=== PATIENT | male | born 1945 | race Caucasian/White ===

== ENCOUNTER 2020-01-02 06:30 | Outpatient (CLI) | payer MEDICARE, OTHER ==
[2020-01-03 16:29] LABS: SARS-CoV-2 MS2 Positive; SARS-CoV-2 N Gene Negative; SARS-CoV-2 S Gene Negative; SARS-CoV-2 orf1ab Negative
== END 2020-01-02 06:31 | disposition home or self-care (01) ==
LOC: LABBT 06:30
PROVIDERS: ATTEND Ophthalmology Retina Specialist
DX: Z01.812 Encounter for preprocedural laboratory examination (principal); Z11.59 Encounter for screening for other viral diseases
CPT/HCPCS: 87635; U0003

== ENCOUNTER 2020-01-06 06:12 | Day surgery (SDC) | payer MEDICARE ==
[2020-01-02 15:30] VITALS: BMI 25.0
[2020-01-06] MEDS ORDERED: PROPOFOL 20 ML ONE (06:24)
[2020-01-06] MEDS ORDERED: Midazolam HCl 2 mg/2 ml Vial ONE (06:24)
[2020-01-06] MEDS ORDERED: Fentanyl 100 MCG/2 ML VIAL ONE (06:24)
[2020-01-06] MEDS ORDERED: Phenylephrine 2.5% Ophth Soln 5 ML BOT ONE (06:39)
[2020-01-06] MEDS ORDERED: Cyclopentolate 1% Opth Drop 2 ML BOT ONE (06:39)
[2020-01-06] MEDS ORDERED: EPINEPHrine 0.3 MG in Ophthalmic Irrigation Solution 500 ML IRR SCH (07:00)
--- NOTE | 2020-01-06 10:46 | OP ---
DATE OF PROCEDURE: 01/06/2020 PREOPERATIVE DIAGNOSES: 1. Epiretinal membrane, left eye. 2. Horseshoe retinal tear, temporal, left eye. POSTOPERATIVE DIAGNOSES: 1. Epiretinal membrane, left eye. 2. Horseshoe retinal tear, temporal, left eye. ESTIMATED BLOOD LOSS: None. SPECIMENS REMOVED: None. COMPLICATIONS: None. PROCEDURES PERFORMED: 1. 25-gauge pars plana vitrectomy, left eye. 2. Epiretinal membrane/internal limiting membrane peel, left eye. 3. Endolaser around horseshoe tear, left eye. ANESTHESIA: MAC with sub-Tenon block. SUMMARY OF OPERATION: The patient was identified in the preoperative holding area. The correct eye being the left eye was marked for surgery. The patient was taken to the operating room, where MAC anesthesia was induced. The left eye was prepped and draped in the usual sterile ophthalmic fashion for surgery. A wire-clip lid speculum was placed. An inferonasal conjunctival peritomy was fashioned for administration of sub-Tenon block. The block consisted of 1:1 ratio of 4% lidocaine with 0.75% Marcaine. Total of 5 mL was administered. A standard 25-gauge pars plana vitrectomy platform was fashioned with trocars placed approximately 3.5 mm from the limbus. The infusion was noted to be within the vitreous cavity prior to being turned on to an infusion pressure of 30 mmHg. The light pipe and microvitrector were introduced in the eye under visualization of the BIOM viewing system. A careful core and peripheral shave vitrectomy were performed. Following completion of vitrectomy, ICG dye was used to stain the internal limiting membrane. Using the Nick ILM forceps, the epiretinal membrane/internal limiting membrane complex was gently removed in a circumferential fashion about the fovea. The peel extended approximately 2 disk diameters in radius circumferentially. Following completion of peeling, the microvitrector was reintroduced in the eye to remove any residual vitreous debris. A 360-degree scleral depressed exam of periphery was performed. A horseshoe retinal tear was noted at approximately 3 o'clock was noted. This vitreous around this was gently removed with scleral depression and vitrectomy. Endolaser was used to provide barricade around this area with 3 confluent rows of laser. The cannulas were sequentially removed. All sclerotomies were noted to be watertight. Ancef and Kenalog were injected subconjunctivally. The wire-clip lid speculum was removed followed by application of TobraDex ophthalmic ointment and a light patch and shield. The patient tolerated the procedure well and was taken to outpatient recovery area in good condition. Job ID: [id number]
[2020-01-06] MEDS ORDERED: CEFAZOLIN 1 GM VIAL ONE (12:47)
[2020-01-06] MEDS ORDERED: Lidocaine 1% PF 5 ML VIAL ONE (12:47)
[2020-01-06] MEDS ORDERED: Bupivacaine PF 0.75% SDV 10 ML ONE (12:47)
[2020-01-06] MEDS ORDERED: Indocyanine Green 25 MG/10 ML VIAL ONE (12:47)
[2020-01-06] MEDS ORDERED: Lidocaine 4% PF 5 ML AMP ONE (12:47)
[2020-01-06] MEDS ORDERED: Triamcinolone 40 MG/ML VIAL ONE (12:47)
[2020-01-06] MEDS ORDERED: Tobramycin/Dexamethasone Ophth Oint 3.5 GM TUBE ONE (12:47)
== END 2020-01-06 09:16 | disposition home or self-care (01) ==
LOC: SDC 06:12
PROVIDERS: ATTEND Ophthalmology Retina Specialist
PROC: 08T53ZZ Resection of Left Vitreous, Percutaneous Approach (ICD-10-PCS; principal; 2020-01-06)
PROC: 08NF3ZZ Release Left Retina, Percutaneous Approach (ICD-10-PCS; 2020-01-06)
PROC: 08QF3ZZ Repair Left Retina, Percutaneous Approach (ICD-10-PCS; 2020-01-06)
DX: H33.312 Horseshoe tear of retina without detachment, left eye (principal); H35.372 Puckering of macula, left eye; Z79.899 Other long term (current) drug therapy
CPT/HCPCS: J0171; J0690; J2001; J2250; J2704; J3010; J3301; J3490

== ENCOUNTER 2020-02-06 07:37 | Outpatient (CLI) | payer MEDICARE, OTHER ==
[2020-02-07 11:37] LABS: SARS-CoV-2 MS2 Positive; SARS-CoV-2 N Gene Negative; SARS-CoV-2 S Gene Negative; SARS-CoV-2 orf1ab Negative
== END 2020-02-06 07:38 | disposition home or self-care (01) ==
LOC: LABBT 07:37
PROVIDERS: ATTEND Ophthalmology Retina Specialist
DX: Z01.812 Encounter for preprocedural laboratory examination (principal); Z11.59 Encounter for screening for other viral diseases
CPT/HCPCS: 87635; U0003

== ENCOUNTER 2020-02-10 06:31 | Day surgery (SDC) | payer MEDICARE ==
[2020-02-05 15:29] VITALS: BMI 25.0
[~2020-02-10 06:31] MED LIST: EPINEPHrine 0.3 MG in Ophthalmic Irrigation Solution 500 ML IRR SCH
[2020-02-10] MEDS ORDERED: Cyclopentolate 1% Opth Drop 2 ML BOT ONE (06:46)
[2020-02-10] MEDS ORDERED: Phenylephrine 2.5% Ophth Soln 5 ML BOT ONE (06:46)
[2020-02-10] MEDS ORDERED: PROPOFOL 20 ML ONE (07:49)
[2020-02-10] MEDS ORDERED: Fentanyl 100 MCG/2 ML VIAL ONE (07:49)
--- NOTE | 2020-02-10 11:22 | OP ---
DATE OF PROCEDURE: 02/10/2020 PRINCIPAL PREOPERATIVE DIAGNOSIS: Hypotony, left eye. POSTOPERATIVE DIAGNOSIS: Hypotony, left eye. PROCEDURES PERFORMED: Surgical revision of wound, left eye. ESTIMATED BLOOD LOSS: None. SPECIMENS REMOVED: None. COMPLICATIONS: None. ANESTHESIA: MAC with subtenon block. SUMMARY OF OPERATION: The patient was identified in the preoperative holding area and correct eye being the left eye was marked for surgery. The patient was taken to the operating room, where MAC anesthesia was induced. The left eye was prepped and draped in usual sterile ophthalmic fashion for surgery. A wire-clip lid speculum was placed. An inferonasal conjunctival peritomy was fashioned with Tyler scissors for administration of subtenon block. The block consisted of 1:1 ratio of 4% lidocaine and 0.75% Marcaine. Total of 5 mL was administered. A localized conjunctival peritomy was fashioned over the prior sclerotomy supranasally and inferotemporally. The sclerotomy wounds were subsequently found and sutured with 8-0 Vicryl sutures. The overlying conjunctiva was closed with 8-0 Vicryl suture. The eye was inflated on a 30-gauge needle with BSS to normotensive. The eye was observed for several minutes and the normal tension was noted to be persistent. Subconjunctival Ancef was injected. The wire-clip lid speculum was removed followed by application of TobraDex ophthalmic ointment and a light patch and shield. The patient tolerated the procedure well and was taken to the outpatient recovery area in good condition. Job ID: [id number]
[2020-02-10] MEDS ORDERED: Lidocaine 1% PF 5 ML VIAL ONE (11:47)
[2020-02-10] MEDS ORDERED: CEFAZOLIN 1 GM VIAL ONE (11:47)
[2020-02-10] MEDS ORDERED: Bupivacaine PF 0.75% SDV 10 ML ONE (11:47)
[2020-02-10] MEDS ORDERED: Lidocaine 4% PF 5 ML AMP ONE (11:47)
[2020-02-10] MEDS ORDERED: Tobramycin/Dexamethasone Ophth Oint 3.5 GM TUBE ONE (11:47)
== END 2020-02-10 09:45 | disposition home or self-care (01) ==
LOC: SDC 06:31
PROVIDERS: ATTEND Ophthalmology Retina Specialist
PROC: 08Q Eye, Repair (ICD-10-PCS; principal; 2020-02-10)
DX: H44.442 Primary hypotony of left eye (principal); Z79.899 Other long term (current) drug therapy; Z91.011 Allergy to milk products; Z91.018 Allergy to other foods
CPT/HCPCS: J0171; J0690; J2001; J2704; J3010; J3490